=== PATIENT | male | born 1990 | race Two or more races ===

== ENCOUNTER 2020-07-06 13:10 | Outpatient (REF) | payer OTHER, SELFPAY | END 2020-07-06 13:11 | disposition home or self-care (01) | LOC: HO.LAB 13:10 | PROVIDERS: Visit Provider Internal Medicine | DX: Z20.828 Contact with and (suspected) exposure to other viral communicable diseases (principal) | CPT/HCPCS: C9803; U0003 ==

== ENCOUNTER 2020-09-24 03:28 | Emergency (ER) | payer OTHER, SELFPAY ==
--- NOTE | ~2020-09-24 | US_ITS ---
EXAMINATION: US ABDOMEN LIMITED CLINICAL INFORMATION: Right upper quadrant/epigastric pain. COMPARISON: CT from earlier today TECHNIQUE: Real-time imaging of the right upper quadrant abdominal viscera. FINDINGS: PANCREAS: The visualized proximal portion of the pancreas is unremarkable. The distal portion is obscured secondary to overlying bowel gas. LIVER: The liver is normal in size. The liver contour is normal. Parenchymal echogenicity is mildly increased, suggesting steatosis with focal sparing near the gallbladder. There is no intrahepatic biliary duct dilatation seen. GALLBLADDER: The gallbladder is physiologically distended, and multiple gallstones are identified. Gallbladder wall thickness is at the upper limits of normal. No pericholecystic fluid identified. COMMON BILE DUCT: Normal in caliber measuring 0.4 cm in diameter. RIGHT KIDNEY: No hydronephrosis. No renal calculi or focal parenchymal lesions. The kidney measures 10.6 cm in maximum dimension. FREE FLUID: None. US/US abdomen limited IMPRESSION: Cholelithiasis with gallbladder wall thickness at the upper limits of normal.
--- NOTE | ~2020-09-24 | CT_ITS ---
EXAMINATION: CT ABDOMEN AND PELVIS WITH CONTRAST CLINICAL INFORMATION: Epigastric, right flank pain COMPARISON: None TECHNIQUE: Multidetector volumetric images were obtained from the superior aspect of the liver through the pubic symphysis following administration of 75 mL of Omnipaque 350 intravenous contrast. Sagittal and coronal reformatted images were obtained on the technologist's workstation. Oral contrast: No This CT examination was performed using dose optimization techniques as appropriate, variously including the following: *Automated exposure control *Adjustment of mA and/or kV according to patient size (this includes techniques or standardized protocols for targeted exams where dose is matched to indication/reason for exam; i.e. extremities or head) *Use of iterative reconstruction technique DLP: 721 mGy-cm FINDINGS: LUNG BASES: The visualized lung bases are unremarkable. LIVER, GALLBLADDER, AND BILIARY TREE: The liver is normal in size, shape, and attenuation. No focal hepatic lesion or biliary ductal dilatation is present. The gallbladder is physiologically distended. Subtle gallbladder wall thickening cannot be excluded. No densely calcified gallstones are seen. PANCREAS: Unremarkable. SPLEEN: Unremarkable. ADRENAL GLANDS: Unremarkable. KIDNEYS AND URETERS: The kidneys are normal in size, shape, and attenuation. No hydronephrosis, hydroureter, or obstructing calculi seen. No perinephric stranding. BLADDER: Unremarkable. GASTROINTESTINAL TRACT: The small and large bowel are unremarkable. The appendix is unremarkable. No free fluid or free air is seen. ABDOMINAL WALL: Bilateral fat-containing inguinal hernias noted. LYMPH NODES: Normal. VASCULAR: Retroaortic left renal vein is noted. PELVIC VISCERA: Unremarkable. OSSEOUS STRUCTURES: Unremarkable. CT/CT abdomen pelvis w con IMPRESSION: Questionable mild gallbladder wall thickening, suboptimally assessed on CT; this would be better evaluated with ultrasound as clinically warranted. No additional acute findings identified in the abdomen/pelvis.
[2020-09-24 03:33] VITALS: BP 175/102; PULSE 53; RESP 20; TEMP 36.9; O2SAT 100; BMI 34.0
--- NOTE | 2020-09-24 03:43 | ED.BACK ---
HPI - Back Pain/Injury General Chief Complaint: Back Pain/Injury Stated Complaint: BACK PAIN Time Seen by Provider: 09/24/20 03:42 Source: patient Mode of arrival: ambulatory History of Present Illness HPI Narrative: This is a 30-year-old male without significant past medical history who presents with 1 month of mid back pain that is atraumatic in nature and when it is really strong patient states radiates into the epigastric area. He states that sometimes this can occur in the middle the night and he is unable to sleep, he denies associated fevers, chills, nausea, vomiting, diarrhea, or urinary symptoms. Patient denies alcohol or IVDA history Related Data Previous Rx's Medication Instructions Recorded ketorolac 10 mg PO Q6H PRN 5 Days #20 tab 09/24/20 Allergies Allergy/AdvReac Type Severity Reaction Status Date / Time No Known Allergies Allergy Verified 09/24/20 03:38 Review of Systems Review of Systems: Pertinent positives and negatives as stated in HPI and 10 point review of systems is otherwise negative. [facility] Past Medical History Source: nursing notes reviewed Social History Social History Advance Directives: No Advance Directives Information Provided: No Physical Exam Vital Signs: Vital Signs: Last Vital Signs Temp 97.7 F 09/24/20 06:00 Pulse 47 L 09/24/20 06:00 Resp 16 09/24/20 06:00 BP 120/76 09/24/20 06:00 Pulse Ox 98 09/24/20 06:00 Body Mass Index 34.0 VITAL SIGNS: Reviewed. GENERAL: Well developed, well nourished, moderate distress. NOSE: Nares patent bilateral OROPHARYNX: no oral lesions noted, posterior pharynx clear NECK: Supple, no adenopathy LUNGS: Normal breath sounds. No adventitious sounds or accessory muscle use. SpO2<100> CARDIOVASCULAR: Regular rate and rhythm without noted murmurs ABDOMEN: Soft, non-tender, non-distended with bowel sounds, no CVA tenderness BACK: No midline vertebral tenderness or paraspinal spasm. NEUROLOGIC: Alert and oriented x 4. Course Course Course Narrative: This is a 30-year-old male with history and clinical presentation suggestive pancreatitis, gastritis, less likely renal colic or cholecystitis. Review of all investigations without acute findings other than found to have hematuria which prompted follow-up CT scan with a suggestion of gallbladder wall thickening and subsequent ultrasound showed cholelithiasis with upper gallbladder wall thickening. I discussed the case with General surgery who recommends follow-up on Saturday for schedule of elective surgery. All results and findings were discussed with patient at bedside and he is agreeable for discharge and was discharged home in stable condition. MDM - Back Pain/Injury Lab Data Result diagrams: 09/24/20 04:00 09/24/20 04:00 Labs: Lab Results 09/24/20 09/24/20 09/24/20 Range/Units 04:00 04:00 04:00 WBC 10.5 (4.8-10.8) X10*3/uL RBC 5.61 (4.60-5.80) X10*6/uL Hgb 15.5 (14.0-18.0) g/dl Hct 49.0 (42-52) % MCV 87.3 (80-98) fL MCH 27.6 (27.0-33.0) pg MCHC 31.6 (31.0-36.0) g/dl RDW 13.1 (11.0-16.0) % Plt Count 287 (160-400) X10*3/uL MPV 9.2 L (9.4-12.4) fL Immature Gran % (Auto) 0.3 (0.0-0.4) % Neut % (Auto) 61.4 (45-73) % Lymph % (Auto) 32.0 (20-40) % Martin % (Auto) 5.8 (2-11) % Eos % (Auto) 0.2 (0-4) % Baso % (Auto) 0.3 (0-2) % Lymph # (Auto) 3.4 (1.2-4.9) X10*3/uL Martin # (Auto) 0.6 (0.1-1.2) X10*3/uL Eos # (Auto) 0.0 (0.0-0.4) X10*3/uL Baso # (Auto) 0.0 (0.0-0.2) X10*3/uL Abs Immat Gran (auto) 0.03 (0.00-0.03) X10*3/uL Absolute Neuts (auto) 6.4 (2.0-8.3) X10*3/uL Absolute Nucleated RBC 0.000 (0.0-0.012) X10*3/uL Nucleated RBC % (auto) 0.0 (0.0-0.2) /100WBC Sodium 139 (135-145) mmol/L Potassium 3.5 (3.3-5.1) mmol/L Chloride 101 (96-108) mmol/L Carbon Dioxide 27 (22-29) mmol/L Anion Gap 15 (12-20) BUN 12 (9-16) mg/dL Creatinine 1.10 (0.5-1.4) mg/dL Estim Creat Clear Calc 112.4 Estimated GFR > 60 Random Glucose 104 (60-115) mg/dL Calcium 9.1 (8.4-10.2) mg/dL Total Bilirubin 0.4 (0.0-1.0) mg/dL AST 22 (5-37) U/L ALT 36 (0-40) U/L Alkaline Phosphatase 73 (39-117) U/L Total Protein 7.4 (6.5-8.0) g/dL Albumin 4.5 (3.5-5.0) g/dL Lipase 38 (8-78) U/L Urine Color YELLOW Urine Appearance CLEAR Urine pH 6.0 (5.0-8.0) Ur Specific [place] >= 1.030 H (1.005-1.025) Urine Protein 2+ H (NEG-TRACE) MG/DL Urine Glucose (UA) NEG (NEG) MG/DL Urine Ketones NEG (NEG) MG/DL Urine Blood 3+ H (NEG) Urine Nitrite NEG (NEG) Ur Leukocyte Esterase NEG (NEG) Urine RBC 15-29 H (0) /HPF Urine WBC 0 (0-4) /HPF Ur Squamous Epith Cells TRACE /LPF Urine Bacteria NONE /LPF Hyaline Casts 0-2 /LPF Urine Mucus TRACE /LPF Urine Opiates Screen (Not Detect) Ur Barbiturates Screen (Not Detect) Ur Phencyclidine Scrn (Not Detect) Ur Amphetamines Screen (Not Detect) U Benzodiazepines Scrn (Not Detect) Urine Cocaine Screen (Not Detect) U Marijuana (THC) Screen (Not Detect) 09/24/20 Range/Units 04:00 WBC (4.8-10.8) X10*3/uL RBC (4.60-5.80) X10*6/uL Hgb (14.0-18.0) g/dl Hct (42-52) % MCV (80-98) fL MCH (27.0-33.0) pg MCHC (31.0-36.0) g/dl RDW (11.0-16.0) % Plt Count (160-400) X10*3/uL MPV (9.4-12.4) fL Immature Gran % (Auto) (0.0-0.4) % Neut % (Auto) (45-73) % Lymph % (Auto) (20-40) % Martin % (Auto) (2-11) % Eos % (Auto) (0-4) % Baso % (Auto) (0-2) % Lymph # (Auto) (1.2-4.9) X10*3/uL Martin # (Auto) (0.1-1.2) X10*3/uL Eos # (Auto) (0.0-0.4) X10*3/uL Baso # (Auto) (0.0-0.2) X10*3/uL Abs Immat Gran (auto) (0.00-0.03) X10*3/uL Absolute Neuts (auto) (2.0-8.3) X10*3/uL Absolute Nucleated RBC (0.0-0.012) X10*3/uL Nucleated RBC % (auto) (0.0-0.2) /100WBC Sodium (135-145) mmol/L Potassium (3.3-5.1) mmol/L Chloride (96-108) mmol/L Carbon Dioxide (22-29) mmol/L Anion Gap (12-20) BUN (9-16) mg/dL Creatinine (0.5-1.4) mg/dL Estim Creat Clear Calc Estimated GFR Random Glucose (60-115) mg/dL Calcium (8.4-10.2) mg/dL Total Bilirubin (0.0-1.0) mg/dL AST (5-37) U/L ALT (0-40) U/L Alkaline Phosphatase (39-117) U/L Total Protein (6.5-8.0) g/dL Albumin (3.5-5.0) g/dL Lipase (8-78) U/L Urine Color Urine Appearance Urine pH (5.0-8.0) Ur Specific [place] (1.005-1.025) Urine Protein (NEG-TRACE) MG/DL Urine Glucose (UA) (NEG) MG/DL Urine Ketones (NEG) MG/DL Urine Blood (NEG) Urine Nitrite (NEG) Ur Leukocyte Esterase (NEG) Urine RBC (0) /HPF Urine WBC (0-4) /HPF Ur Squamous Epith Cells /LPF Urine Bacteria /LPF Hyaline Casts /LPF Urine Mucus /LPF Urine Opiates Screen Not Detected (Not Detect) Ur Barbiturates Screen Not Detected (Not Detect) Ur Phencyclidine Scrn Not Detected (Not Detect) Ur Amphetamines Screen Not Detected (Not Detect) U Benzodiazepines Scrn Not Detected (Not Detect) Urine Cocaine Screen Not Detected (Not Detect) U Marijuana (THC) Screen Not Detected (Not Detect) Discharge Plan Discharge Clinical Impression: Cholelithiasis Qualifiers: Cholelithiasis location: gallbladder Cholecystitis presence: without cholecystitis Biliary obstruction: without biliary obstruction Qualified Code(s): K80.20 - Calculus of gallbladder without cholecystitis without obstruction Patient Disposition: Home, Self-Care Instructions: Gallstones (ED) Additional Instructions: 1. Tylenol 1000 mg, orally, every 6 hours as needed for pain control. Do not exceed 4000 mg within 24 hours. 2. Eat a very bland diet, minimal fat content. 3. You have been provided a surgical referral listed below and your case was discussed with Dr. King. Do not hesitate to return to the emergency department if you develop any acute worsening of your symptoms especially nausea, vomiting, fevers, chills. Prescriptions: New ketorolac 10 mg tablet 10 mg PO Q6H PRN (Reason: pain) 5 Days Qty: 20 RF: 0 Referrals: Ryland King MD [Physician] - 09/26/20 8:00 am (Evaluation and management of symptomatic cholelithiasis.)
--- NOTE | 2020-09-24 03:47 | PC.NURSE ---
Pt found sitting upright in bed, speaking full sentences. Pt reporting pain to right lower back for 1-3 months, states the pain is intermittent, comes and goes. Pt denies any injury, pt denies previous eval for complaint by MD. clinical laboratory technologist at bedside to obtain labs and send urine. Awaiting results. MD at bedside for primary eval.
[2020-09-24 04:06] LABS: MANUAL DIFF FLAG NO
[2020-09-24 04:08] LABS: Basophils Percent Auto 0.3 % (0-2); Eosinophils Percent Auto 0.2 % (0-4); Hemoglobin 15.5 g/dl (14.0-18.0); Imm Gran Abs Auto 0.03 X10*3/uL (0.00-0.03); Imm Gran Pct Auto 0.3 % (0.0-0.4); Lymphocytes Absolute Auto 3.4 X10*3/uL (1.2-4.9); Mean Corpuscular HGB Conc 31.6 g/dl (31.0-36.0); Mean Corpuscular Hemoglobin 27.6 pg (27.0-33.0); Mean Corpuscular Volume 87.3 fL (80-98); Mean Platelet Volume 9.2 fL (9.4-12.4); Monocytes Absolute Auto 0.6 X10*3/uL (0.1-1.2); Monocytes Percent Auto 5.8 % (2-11); Neutrophils Absolute Auto 6.4 X10*3/uL (2.0-8.3); Neutrophils Percent Auto 61.4 % (45-73); Platelet Count 287 X10*3/uL (160-400); Red Blood Count 5.61 X10*6/uL (4.60-5.80); Red Cell Distribution Width 13.1 % (11.0-16.0); White Blood Count 10.5 X10*3/uL (4.8-10.8)
[2020-09-24 04:11] LABS: Glucose Urine UA NEG (NEG); Leukocyte Esterase Urine NEG (NEG); Nitrite Urine NEG (NEG); Specific Gravity - Urine >= 1.030 (1.005-1.025); Urine Blood 3+ (NEG); Urine Ketones NEG (NEG); Urine Protein 2+ MG/DL (NEG-TRACE)
[2020-09-24] MEDS: Lidocaine 4 % Patch ADH..PATCH 1 PATCH TRANSDERMA (04:11)
[2020-09-24] MEDS: Acetaminophen 325 MG TABLET 975 MG PO (04:11)
[2020-09-24] MEDS: Ketorolac Tromethamine 15 MG/ML VIAL IM (04:11)
--- NOTE | 2020-09-24 04:15 | PC.NURSE ---
Medicated per MAR.
[2020-09-24 04:20] LABS: Amphetamine Screen Urine Not Detected (Not Detect); Barbiturates, Urine Not Detected (Not Detect); Benzodiazepines Screen Urine Not Detected (Not Detect); Cannabinoid Screen Urine Not Detected (Not Detect); Cocaine Screen Urine Not Detected (Not Detect); Opiate Screen Urine Not Detected (Not Detect); Phencyclidine Screen Urine Not Detected (Not Detect)
--- NOTE | 2020-09-24 04:28 | PC.NURSE ---
at bedside for eval.
[2020-09-24 04:29] LABS: Alanine Aminotransferase 36 U/L (0-40); Albumin Level 4.5 g/dL (3.5-5.0); Alkaline Phosphatase 73 U/L (39-117); Anion Gap 15 (12-20); Appearance Urine CLEAR; Aspartate Amino Transferase 22 U/L (5-37); Bilirubin Total 0.4 mg/dL (0.0-1.0); Blood Urea Nitrogen 12 mg/dL (9-16); Calcium 9.1 mg/dL (8.4-10.2); Carbon Dioxide 27 mmol/L (22-29); Chloride 101 mmol/L (96-108); Color Urine YELLOW; Creatinine Clr Calc Pharmacy 112.4; Estimated Glomerular Filt Rate > 60; Glucose Random 104 mg/dL (60-115); Lipase 38 U/L (8-78); Potassium 3.5 mmol/L (3.3-5.1); Sodium 139 mmol/L (135-145); Total Protein 7.4 g/dL (6.5-8.0)
--- NOTE | 2020-09-24 04:35 | PC.NURSE ---
IV established, awaiting CT. Pt reports some relief of pain, states pain decreased to a 4/10. Continue to monitor.
--- NOTE | 2020-09-24 04:43 | PC.NURSE ---
Pt ambulating to CT with a steady gait.
[2020-09-24 04:44] LABS: Hyaline Casts Urine 0-2 /LPF; Mucus Urine TRACE /LPF; Squamous Epithelial Cell Urine TRACE /LPF; WBC Urine 0 /HPF (0-4)
[2020-09-24] MEDS: iohexoL 350 MG/ML 75 ML INFUS..BTL IV (05:02)
[2020-09-24 05:15] VITALS: BP 127/79; PULSE 51; RESP 16
--- NOTE | 2020-09-24 05:40 | PC.NURSE ---
Off to U/S in wheelchair.
[2020-09-24 06:00] VITALS: BP 120/76; PULSE 47; RESP 16; TEMP 36.5; O2SAT 98
--- NOTE | 2020-09-24 06:06 | PC.NURSE ---
Pt returns from U/S, awaiting results.
--- NOTE | 2020-09-24 06:35 | PC.NURSE ---
HR noted to be 45-50 bpm while sleeping. Pt states that his HR runs low, pt explains he is a very active person. aware.
--- NOTE | 2020-09-24 06:37 | PC.NURSE ---
MD at bedside discussing results and plan to DC home.
== END 2020-09-24 08:36 | disposition home or self-care (01) ==
PROVIDERS: Emergency Provider Student in an Organized Health Care Education/Training Program
DX: K80.20 Calculus of gallbladder without cholecystitis without obstruction (principal); M54.5 Low back pain; Z79.899 Other long term (current) drug therapy
CPT/HCPCS: 36415; 74177; 76705; 80053; 80307; 81001; 83690; 85025; 96372; 99284; J1885; Q9967

== ENCOUNTER → 2020-10-06 15:42 | Outpatient (BNVA) | payer OTHER, SELFPAY | PROVIDERS: Visit Provider Surgery ==

== ENCOUNTER 2020-10-25 07:23 | Day surgery (SDC) | payer OTHER, SELFPAY ==
[2020-10-18 19:29] VITALS: BMI 34.2
--- NOTE | 2020-10-21 14:20 | HO.ANESPROP2 ---
Documented by User: Anastasia Rosas 10/21/20 14:21 HPI - Anesthesia Eval Consult details Narrative: 30yo M for Cholecystectomy Laparoscopic PMFSH Active Problems Active Problems: All Active Problems (Updated 10/19/20 @ 10:09 by Chhaya Malik) Gallstones (Acute) No active medical problems (Acute) Past Medical History Medical History Gallstones History of COVID-19 Lab test negative for COVID-19 virus Social History Social History Smoking Status: Never smoker Use of substances other than those prescribed or required for medical reasons: Yes Substance Use Frequency: Monthly Advance Directives: No Advance Directives Information Provided: No Advance Directives on File: No Meds Allergies Allergy/AdvReac Type Severity Reaction Status Date / Time No Known Allergies Allergy Verified 10/25/20 07:53 Exam Exam Date and Time: October 21, 2020 1420 Height,Weight and Vital Signs: Height 5 ft 8 in Weight 102.058 kg Pertinent Lab Results Pertinent Lab Results: Laboratory Tests 09/24/20 09/24/20 04:00 04:00 WBC 10.5 Hgb 15.5 Hct 49.0 Plt Count 287 Sodium 139 Potassium 3.5 Chloride 101 Carbon Dioxide 27 BUN 12 Creatinine 1.10 Assessment and Plan Assessment Anesthesia Assessment: Chart Reviewed Documented by User: Amy Pittman 10/25/20 09:35 PMFSH Past Medical History Medical History Gallstones History of COVID-19 Lab test negative for COVID-19 virus Social History Social History Smoking Status: Never smoker Use of substances other than those prescribed or required for medical reasons: Yes Substance Use Frequency: Monthly Advance Directives: No Advance Directives Information Provided: No Advance Directives on File: No Meds Allergies Allergy/AdvReac Type Severity Reaction Status Date / Time No Known Allergies Allergy Verified 10/25/20 07:53 Exam Airway Mallampati Class: II TM Dist: >3cm Neck ROM: Full Assessment and Plan Assessment Anesthesia Assessment: Anesthesia Plan Discussed Final Anesthetic Review NPO: Yes ASA Class: I Final Preanesthetic Review: No Changes in Pt Med Stat, Meds/Allgs Chart Reviewed, Consent Obtained/Reviewed and Anes Risks/Benef Reviewed Patient Risk: Low Procedure Risk: Low Assessment/Block/Sedation in SS: Assess/Block/Sedation-SS Anesthetic Plan Anesthetic Plan: GA Disposition: Standard PACU
[2020-10-25] VITALS (8 sets, daily range): BP systolic 114–141; BP diastolic 65–85; PULSE 46–80; RESP 16–18; TEMP 36.2–36.3; O2SAT 96–100
[2020-10-25] MEDS: Acetaminophen 325 MG TABLET 650 MG PO ×2 (08:24→12:09)
[2020-10-25] MEDS: Lactated Ringers 1,000 ML 100 ML IVCONT (08:24)
--- NOTE | 2020-10-25 09:31 | MHC.SHP ---
Pre-Procedural Eval Section B Chief Complaint: Gallstones Allergies: Allergies Allergy/AdvReac Type Severity Reaction Status Date / Time No Known Allergies Allergy Verified 10/25/20 07:53 Plan I have reviewed the history and physical and performed a pertinent physical examination on my patient. No changes have occurred unless specified.
--- NOTE | 2020-10-25 11:03 | P.OP_ITS ---
Operative Note Operative Note Date of Service: 10/25/20 Narrative: Preop diagnosis: Symptomatic gallstones Postop diagnosis: Symptomatic gallstones Procedure: Laparoscopic cholecystectomy with repair of a supraumbilical hernia Surgeon: Ryland King MD The patient is a 30-year-old male with periodic right upper quadrant pain with note of gallstones on imaging studies. In view of his symptoms likely due to gallstones, he wanted to proceed with laparoscopic cholecystectomy. He understood the technique of laparoscopic cholecystectomy with possible conversion to open. He was aware of the risks, benefits, and alternatives. He was brought to the operating room and placed supine on the table under general anesthesia via endotracheal tube. The abdomen was prepped and draped in the usual sterile fashion. A surgical time-out was done. The patient received Cefotan 2 g IV preoperatively. I made a short incision on the supraumbilical margin using a blade 15 and this was the carried down through the full-thickness of the skin and subcutaneous fat using blunt dissection with Tara clamps. We then encountered a fat- containing supraumbilical hernia. This was actually seen on his CAT scan as well. We dissected the hernia sharply down to the fascial edges until we were able to completely define the defect. I then proceeded to reduce the hernia. The fascial opening was lengthened a little bit to allow placement of the Annmarie port. I applied stay sutures on both sides of the fascia. I insufflated through the port to a pressure of 15 mm hg. From here on the rest of the procedure was done under vision with the laparoscope. With laparoscopic visualization I proceeded to insert a 5/12 mm port through a small incision in the epigastric area below the subcostal margin. 5 mm ports were introduced through small incisions below the subcostal margin along the anterior axillary line and the midclavicular line. Graspers were placed through these working ports. The patient was placed in head-up and [id number] position. The gallbladder was seen and there was note of adhesions on the anterior wall. I was able to however grasp the fundus using a grasper and this was used to retract the gallbladder cephalad. I proceeded to then gently dissect the adh esions of the anterior wall using [place] dissector until we were able to completely expose the entire anterior wall of the gallbladder. I was able to apply another grasper towards the pouch of the gallbladder and this was used to retract the gallbladder laterally. At this point therefore we were retracting the gallbladder in a lateral and cephalad fashion with a graspers. This put the area of the cystic duct on stretch. I gently dissected the area of cystic duct using the [place] dissector and until was able to clearly define the cystic duct. I continued to dissect around the cystic duct to expose this circumferentially. By doing so we were able to confirm the confluence of the cystic duct with the neck of the gallbladder as well as achieve a critical view of the hepatocystic triangle. There was what appeared to be a fine cystic artery traveling parallel along the cystic duct. I applied clips on the cystic duct with 2 clips applied distally. The cystic duct was transected between clips using Endo scissors. I applied clips on the cystic artery and this was transected between clips as well. With traction on the gallbladder away wall away from the liver bed a continue to dissect across the hilum until I was able to reach the interface of the gallbladder wall and the liver bed. I incised the peritoneum of the gallbladder with electrocautery spatula. I then proceeded to separate the gallbladder wall and the liver bed along this plane of dissection using a combination of blunt dissection with the tip of the spatula as well as electrocautery itself. We continued to separate the gallbladder away from the liver bed all the way to the fundus until the entire gallbladder was completely . This was retrieved through an endobag through the umbilical incision. We reinserted all ports and re-insufflated I did copious irrigation in view of some tiny amount of spillage of bile from a tear on the gallbladder from 1 of the graspers. I observed for hemostasis. There was no evidence of any bleeding in the subhepatic space. I examined all 4 quadrants. There was no other pathology. There was evidence of any bowel injury. I then re-examined the subhepatic space. This appeared hemostatic. I then desufflated through the port sites and removed all ports under vision with the laparoscope. The supraumbilical hernia was closed with a [id number] Maxon 1 stitch. All incisions were infiltrated with Marcaine 0.5% for postop analgesia and the procedure was completed. The patient appears well pinna complication noted. Initial and final counts of sponges and instruments were correct. Estimated blood loss about 30 cc The patient was extubated without difficulty and transferred to the recovery room with stable vital signs.
--- NOTE | 2020-10-25 11:09 | PM.OP ---
Brief Operative Note Date of Service: 10/25/20 Pre-op diagnosis: Gallstones Post-op diagnosis: same Procedure: Laparoscopic cholecystectomy Surgeon: Ryland King MD Anesthesia: GETA Estimated blood loss (mL): 30 Pathology: other (Gallbladder) Condition: stable Disposition: PACU
[2020-10-25] MEDS: oxyCODONE HCl Immed Release 5 MG TABLET PO (12:09)
== END 2020-10-25 13:00 | disposition home or self-care (01) ==
PROVIDERS: Visit Provider Surgery
PROC: 0FT44ZZ Resection of Gallbladder, Percutaneous Endoscopic Approach (ICD-10-PCS; CPT 47562; principal; 2020-10-25 09:20)
DX: K80.10 Calculus of gallbladder with chronic cholecystitis without obstruction (principal); D36.0 Benign neoplasm of lymph nodes; K43.9 Ventral hernia without obstruction or gangrene; K66.0 Peritoneal adhesions (postprocedural) (postinfection); Z86.16 Personal history of COVID-19; Z79.899 Other long term (current) drug therapy
CPT/HCPCS: 47562; 49560; 88304; J1100; J1885; J2250; J2405; J3010

== ENCOUNTER → 2020-11-07 14:00 | Outpatient (BNVA) | payer OTHER, SELFPAY | PROVIDERS: Visit Provider Surgery ==

== ENCOUNTER 2021-06-13 11:59 | Outpatient (REF) | payer OTHER, SELFPAY ==
[2021-06-13 12:26] LABS: COVID-19 Test Negative (Negative)
== END 2021-06-13 12:00 | disposition home or self-care (01) ==
LOC: HO.LAB 11:59
PROVIDERS: PCP Internal Medicine; Visit Provider Internal Medicine
DX: Z20.822 Contact with and (suspected) exposure to COVID-19 (principal)
CPT/HCPCS: 36415; 87635; C9803

== ENCOUNTER 2021-06-27 15:40 | Outpatient (REF) | payer OTHER, SELFPAY ==
[2021-06-27 16:02] LABS: COVID-19 Test Negative (Negative); IDNOW Serial# 16C4AD1C
== END 2021-06-27 15:41 | disposition home or self-care (01) ==
LOC: HO.LAB 15:40
PROVIDERS: Visit Provider Internal Medicine
DX: Z20.822 Contact with and (suspected) exposure to COVID-19 (principal)
CPT/HCPCS: 36415; 87635; C9803

== ENCOUNTER 2022-09-26 12:30 | Outpatient (REF) | payer OTHER, SELFPAY ==
[2022-09-26 13:00] LABS: MANUAL DIFF FLAG NO
[2022-09-26 13:27] LABS: Basophils Percent Auto 0.5 % (0-2); Eosinophils Absolute Auto 0.1 X10*3/uL (0.0-0.4); Eosinophils Percent Auto 0.8 % (0-4); Hematocrit 48.7 % (42.0-52.0); Hemoglobin 15.6 g/dl (14.0-18.0); Imm Gran Abs Auto 0.02 X10*3/uL (0.00-0.03); Imm Gran Pct Auto 0.3 % (0.0-0.4); Lymphocytes Absolute Auto 1.9 X10*3/uL (1.2-4.9); Lymphocytes Percent Auto 29.2 % (20-40); Mean Corpuscular Hemoglobin 27.3 pg (27.0-33.0); Mean Corpuscular Volume 85.3 fL (80.0-98.0); Mean Platelet Volume 9.2 fL (9.4-12.4); Monocytes Absolute Auto 0.4 X10*3/uL (0.1-1.2); Monocytes Percent Auto 6.8 % (2-11); Neutrophils Absolute Auto 4.1 x10*3/uL (2.0-8.3); Neutrophils Percent Auto 62.4 % (45-73); Platelet Count 301 X10*3/uL (160-400); Red Blood Count 5.71 X10*6/uL (4.60-5.80); Red Cell Distribution Width 12.8 % (11.0-16.0); White Blood Count 6.5 X10*3/uL (4.8-10.8)
[2022-09-26 14:08] LABS: Alanine Aminotransferase 63 U/L (0-40); Albumin Level 4.4 g/dL (3.5-5.0); Alkaline Phosphatase 67 U/L (39-117); Anion Gap 11 (12-20); Aspartate Amino Transferase 34 U/L (5-37); Bilirubin Total 0.6 mg/dL (0.0-1.0); Blood Urea Nitrogen 13 mg/dL (9-16); Calcium 9.2 mg/dL (8.4-10.2); Carbon Dioxide 28 mmol/L (22-29); Chloride 105 mmol/L (96-108); Cholesterol 217 mg/dL; Estimated Glomerular Filt Rate > 60; Glucose Fasting 92 mg/dL (60-99); HDL Cholesterol 37 mg/dL; LDL Cholesterol Calculated 154 mg/dl; Potassium 4.4 mmol/L (3.3-5.1); Sodium 140 mmol/L (135-145); Total Protein 7.4 g/dL (6.5-8.0); Triglycerides 130 mg/dL
[2022-09-26 14:29] LABS: Free T4 (Free Thyroxine) 0.94 ng/dL (0.71-1.85); Thyroid Stimulating Hormone 1.52 uIU/mL (0.32-4.0); Vitamin B12 323 pg/mL (200-900)
== END 2022-09-26 12:31 | disposition home or self-care (01) ==
LOC: HO.LAB 12:30
PROVIDERS: PCP Internal Medicine; Visit Provider Internal Medicine
DX: Z00.00 Encounter for general adult medical examination without abnormal findings (principal); R63.5 Abnormal weight gain; R53.83 Other fatigue
CPT/HCPCS: 36415; 80053; 80061; 82607; 84439; 84443; 85025

== ENCOUNTER 2023-03-20 09:03 | Outpatient (AMB) | payer BC, SELFPAY ==
--- NOTE | 2023-03-20 09:02 | A.OFFVIS_ITS ---
Intake Vital Signs 03/20/23 09:04 Height 5 ft 8 in Weight 300 lb BMI 45.6 BP 136/78 Blood Pressure Location Lt brachial Position Sitting Pulse 68 Pulse Source Pulse Oximeter Pulse Oximetry (%) 97 Oxygen Delivery Method Room Air Intake Visit Reasons: Sleep apnea Outpatient Interviewing Clerk Required: No Accompanied by: Self / Same As Patient Allergies No Known Allergies Allergy (Verified 03/20/23 09:10) Medication List - Last Reconciled 03/20/23 by Leonora Ta LPN lisinopril 10 mg PO DAILY HPI Sleep apnea HPI Details Ramu is a very pleasant 33 year old male, never tobacco smoker, with underlying asthma and morbid obesity. He was referred by PCP for evaluation for obstructive sleep apnea. He reports loud snoring, daytime fatigue, witnessed apneas and paroxysmal nocturnal dyspnea which has been more noticeable since a significant weight gain over the past year. He has been more dyspneic with exertion which he attributes to his weight gain. He does not use an inhaler. He reports childhood asthma and seasonal allergies. He denies any family history of lung conditions. [facility] Medical History Gallstones History of COVID-19 Lab test negative for COVID-19 virus Social History (Updated 03/20/23 @ 09:11 by Leonora Ta LPN) Patient Tobacco Use Status: Never used Tobacco Review of Systems Const Denies chills, Denies excessive sweating, Denies fever(s), Denies headache(s) and Denies night sweats Eyes Denies dry eyes, Denies irritation and Denies itchy eyes ENT Reports Normal hearing present, Denies headache(s), Denies nasal congestion, Denies nasal discharge, Denies post nasal drip and Denies sore throat Card Denies chest pain, Denies chest pain at rest, Denies chest pain with activity, Denies claudication, Denies leg edema, Reports dyspnea, Reports dyspnea on e xertion, Denies orthopnea and Reports paroxysmal nocturnal dyspnea Resp Denies chest congestion, Denies excessive phlegm production, Denies pain on inspiration, Denies pain with cough, Reports dyspnea, Reports dyspnea on exertion, Denies stridor and Denies wheezing Musc Denies myalgias Neuro Reports Normal hearing present and Denies headache(s) Endo Denies excessive sweating Tito/Lymph Denies lymphadenopathy Aller/Immun Denies itchy eyes, Denies seasonal rhinorrhea and Denies wheezing Physical Exam Vital Signs: Last Vital Signs Pulse 68 03/20/23 09:04 BP 136/78 03/20/23 09:04 Pulse Ox 97 03/20/23 09:04 Oxygen Delivery Method Room Air 03/20/23 09:04 BMI result Body Mass Index 45.6 Const General: cooperative, healthy appearing, comfortable, no acute distress, well developed and alert Nutritional Appearance: obese Orientation/consciousness: patient oriented x3 Limitations: no limitations HEENT Head: Yes normal to inspection, Yes normocephalic and Yes atraumatic Ears: hearing grossly normal bilaterally and external ears normal Eyes General: appearance normal, both eyes and all related structures Eyelids: Yes eyelids normal Sclerae: sclerae normal EOM: EOMs intact bilaterally Neck Neck: Yes normal visual inspection and Yes no lymphadenopathy Lymphatic: no lymphadenopathy noted Chest Chest palpation & inspection: normal inspection of the chest Resp Effort & Inspection: normal respiratory effort, able to speak in complete sentences, no audible wheezes, no cough, no stridor, not tachypneic, no tripod positioning and no use of accessory muscles Auscultation: clear to auscultation bilaterally Cardio Jugular venous distension: no JVD Rate: regular rate Rhythm: regular rhythm Skin Other: warm, dry General skin exam: no rashes or lesions noted Neuro General: patient oriented x3 Cranial nerves: Yes Normal hearing present Cognition (Neuro): normal cognition Gait exam (Neuro): Normal gait present Extrem General: Yes normal to inspection, Yes capillary refill normal, Yes no clubbing, cyanosis or edema and Yes no pedal edema Psych Appearance: grossly normal and well kempt Speech and movement: Normal speech and movement present and Clear speech present Affect: normal affect Attitude: cooperative Thought process: Normal thought process present Thought content: Normal thought content present Insight: Good insight present (Psych) Judgement: Good judgement present (Psych) Assessment & Plan Assessment & Plan (1) Asthma: Code(s): J45.909 - Unspecified asthma, uncomplicated (2) Daytime somnolence: Code(s): R40.0 - Somnolence (3) Morbid obesity with BMI of 45.0-49.9, adult: Code(s): E66.01 - Morbid (severe) obesity due to excess calories; Z68.42 - Body mass index [BMI] 45.0-49.9, adult Plan Will send Ramu for home sleep study to evaluate for obstructive sleep apnea given his daytime somnolence, PND, loud snoring and witnessed apneas. Briefly discussed CPAP therapy. Will also send for PFT given his dyspnea on exertion and history of childhood asthma. Discussed his weight gain as a contributor to his symptoms, which he was interested in a referral to weight management. I will en ter this. Will follow up to review results. All questions were answered and patient is in agreement of plan. Orders: Orders PFT pulmonary function test Today J45.909 - Unspecified asthma, uncomplicated RT home sleep study Today E66.01 - Morbid (severe) obesity due to excess calories, R40.0 - Somnolence, Z68.42 - Body mass index [BMI] 45.0-49.9, adult Referrals Medical Weight Management Referral E66.01 - Morbid (severe) obesity due to excess calories, Z68.42 - Body mass index [BMI] 45.0-49.9, adult Coding Level of Care Code New Pt Level 4 (44736) Diagnoses Asthma J45.909 Daytime somnolence R40.0 Morbid obesity with BMI of 45.0-49.9, adult E66.01; Z68.42
[2023-03-20 09:04] VITALS: BP 136/78; PULSE 68; O2SAT 97; BMI 45.6
== END 2023-03-20 09:36 | disposition home or self-care (01) ==
LOC: HO.HPSW 09:03
PROVIDERS: PCP Internal Medicine; Referring Provider Internal Medicine; Visit Provider Nurse Practitioner Family
DX: J45.909 Unspecified asthma, uncomplicated (principal); R40.0 Somnolence; E66.01 Morbid (severe) obesity due to excess calories; Z68.42 Body mass index [BMI] 45.0-49.9, adult
CPT/HCPCS: 99204

== ENCOUNTER → 2023-05-20 15:59 | Outpatient (REF) | payer BC, SELFPAY | LOC: HO.SL 15:59 | PROVIDERS: PCP Internal Medicine; Visit Provider Nurse Practitioner Family | DX: G47.33 Obstructive sleep apnea (adult) (pediatric) (principal); R40.0 Somnolence; E66.01 Morbid (severe) obesity due to excess calories; Z68.42 Body mass index [BMI] 45.0-49.9, adult | CPT/HCPCS: 95806 ==

== ENCOUNTER → 2023-05-20 16:11 | Outpatient (BNV) | payer BC, SELFPAY | PROVIDERS: PCP Internal Medicine; Visit Provider Internal Medicine | DX: G47.33 Obstructive sleep apnea (adult) (pediatric) (principal) | CPT/HCPCS: 95806 ==

== ENCOUNTER 2023-06-04 15:38 | Outpatient (AMB) | payer BC, SELFPAY ==
--- NOTE | 2023-06-04 15:45 | A.OFFVIS_ITS ---
Intake Vital Signs 3 06/04/23 15:46 Height 5 ft 8 in Weight 282 lb BMI 42.9 BP 138/74 Blood Pressure Location Rt brachial Position Sitting Pulse 81 Pulse Source Pulse Oximeter Pulse Oximetry (%) 96 Oxygen Delivery Method Room Air Intake Visit Reasons: Obstructive sleep apnea Spinning Bath Person: Spinning Bath Person offered & declined Accompanied by: Self / Same As Patient Allergies No Known Allergies Allergy (Verified 06/04/23 15:49) Medication List - Last Reconciled 06/04/23 by Leonora Ta LPN losartan 50 mg PO DAILY HPI Obstructive sleep apnea 2 HPI0 Details Ramu is a very pleasant 33 year old male, never tobacco smoker, with underlying asthma, obstructive sleep apnea and morbid obesity. He reported symptoms of YEYO with loud snoring, daytime fatigue, witnessed apneas and paroxysmal nocturnal dyspnea which has been more noticeable since a significant weight gain over the past year. He also reported dyspnea with exertion. At the last visit he was sent for a PFT but unfortunately he missed the appointment. Today he presents to review sleep study results. [facility] Medical History Gallstones History of COVID-19 Lab test negative for COVID-19 virus Social History (Updated 06/04/23 @ 15:50 by Leonora Ta LPN) Patient Tobacco Use Status: Never used Tobacco Review of Systems Const Denies chills, Denies excessive sweating, Denies fever(s), Denies headache(s) and Denies night sweats Eyes Denies dry eyes, Denies irritation and Denies itchy eyes ENT Reports Normal hearing present and Denies headache(s) Card Denies chest pain, Denies chest pain at rest, Denies chest pain with activity, Denies claudication, Denies leg edema, Reports dyspnea, Reports dyspnea on exertion, Denies orthopnea and Reports paroxysmal nocturnal dyspnea Resp Denies chest congestion, Denies excessive phlegm production, Denies pain on inspiration, Denies pain with cough, Reports dyspnea, Reports dyspnea on exertion, Denies stridor and Denies wheezing Musc Denies myalgias Neuro Reports Normal hearing present and Denies headache(s) Endo Denies excessive sweating Tito/Lymph Denies lymphadenopathy Aller/Immun Denies itchy eyes, Denies seasonal rhinorrhea and Denies wheezing Physical Exam Vital Signs: Last Vital Signs Pulse 81 06/04/23 15:46 BP 138/74 06/04/23 15:46 Pulse Ox 96 06/04/23 15:46 Oxygen Delivery Method Room Air 06/04/23 15:46 BMI result Body Mass Index 42.9 Const General: cooperative, healthy appearing, comfortable, no acute distress, well developed and alert Nutritional Appearance: obese Orientation/consciousness: patient oriented x3 Limitations: no limitations HEENT Head: Yes normal to inspection, Yes normocephalic and Yes atraumatic Ears: hearing grossly normal bilaterally and external ears normal Eyes General: appearance normal, both eyes and all related structures Eyelids: Yes eyelids normal Sclerae: sclerae normal EOM: EOMs intact bilaterally Neck Neck: Yes normal visual inspection and Yes no lymphadenopathy Lymphatic: no lymphadenopathy noted Chest Chest palpation & inspection: normal inspection of the chest Resp Effort & Inspection: normal respiratory effort, able to speak in complete sentences, no audible wheezes, no cough, no stridor, not tachypneic, no tripod positioning and no use of accessory muscles Auscultation: clear to auscultation bilaterally Cardio Jugular venous distension: no JVD Rate: regular rate Rhythm: regular rhythm Skin Other: warm, dry General skin exam: no rashes or lesions noted Neuro General: patient oriented x3 Cranial nerves: Yes Normal hearing present Cognition (Neuro): normal cognition Gait exam (Neuro): Normal gait present Extrem General: Yes normal to inspection, Yes capillary refill normal, Yes no clubbing, cyanosis or edema and Yes no pedal edema Psych Appearance: grossly normal and well kempt Speech and movement: Normal speech and movement present and Clear speech present Affect: normal affect Attitude: cooperative Thought process: Normal thought process present Thought content: Normal thought content present Insight: Good insight present (Psych) Judgement: Good judgement present (Psych) Results Reviewed Results Reviewed: Assessment & Plan Assessment & Plan (1) Obstructive sleep apnea: Code(s): G47.33 - Obstructive sleep apnea (adult) (pediatric) (2) Asthma: Code(s): J45.909 - Unspecified asthma, uncomplicated (3) Morbid obesity with BMI of 45.0-49.9, adult: Code(s): E66.01 - Morbid (severe) obesity due to excess calories; Z68.42 - Body mass index [BMI] 45.0-49.9, adult Plan Reviewed sleep study results with patient which revealed an AHI of 13.4. Since patient is quite symptomatic, will start CPAP therapy. Will send in prescription for APAP mode and pressure settings of 6-16 cm with close monitoring for compliance and benefits. Sleep hygiene education reviewed. He is aware if there are any issues with the mask or CPAP machine, he will call the office. Will also trial Flovent. Inhaler technique reviewed and discussed importance of oral hygiene. All questions were answered and patient is in agreement of plan. Will follow up in 8 weeks. Medications: New 2 Flovent Diskus 100 mcg/actuation (fluticasone propionate) 2 inhalations inhalation BID 60 ea 3RF NS Coding Level of Care Code Est Pt Level 4 (32182) Diagnoses Obstructive sleep apnea G47.33 Asthma J45.909 Morbid obesity with BMI of 45.0-49.9, adult E66.01; Z68.42
[2023-06-04 15:46] VITALS: BP 138/74; PULSE 81; O2SAT 96; BMI 42.9
== END 2023-06-04 16:10 | disposition home or self-care (01) ==
PROVIDERS: PCP Internal Medicine; Visit Provider Nurse Practitioner Family
DX: G47.33 Obstructive sleep apnea (adult) (pediatric) (principal); J45.909 Unspecified asthma, uncomplicated; E66.01 Morbid (severe) obesity due to excess calories; Z68.42 Body mass index [BMI] 45.0-49.9, adult
CPT/HCPCS: 99214

== ENCOUNTER → 2023-06-04 15:38 | Outpatient (BNVA) | payer BC, SELFPAY | PROVIDERS: PCP Internal Medicine; Visit Provider Nurse Practitioner Family ==

== ENCOUNTER 2023-06-15 10:21 | Outpatient (REF) | payer BC, SELFPAY ==
[2023-06-15 10:59] LABS: Estimated Average Glucose 280 mg/dL; Hemoglobin A1c % 11.4 % (<6.0)
[2023-06-15 11:18] LABS: Anion Gap 14 (12-20); Blood Urea Nitrogen 8 mg/dL (9-16); Calcium 9.4 mg/dL (8.4-10.2); Carbon Dioxide 24 mmol/L (22-29); Chloride 102 mmol/L (96-108); Estimated Glomerular Filt Rate > 60; Glucose Random 210 mg/dL (60-115); Sodium 136 mmol/L (135-145)
== END 2023-06-15 10:22 | disposition home or self-care (01) ==
LOC: HO.LAB 10:21
PROVIDERS: PCP Internal Medicine; Visit Provider Internal Medicine
DX: E11.9 Type 2 diabetes mellitus without complications (principal); I10 Essential (primary) hypertension
CPT/HCPCS: 36415; 80048; 83036

== ENCOUNTER 2023-11-26 13:41 | Outpatient (AMB) | payer BC, SELFPAY ==
--- NOTE | 2023-11-26 13:14 | MHC.OFFVIS ---
Intake Visit Reasons: Obstructive sleep apnea Allergies No Known Allergies Allergy (Verified 06/04/23 15:49) HPI HPI Obstructive sleep apnea: Details: Ramu is a very pleasant 33 year old male, never tobacco smoker, with underlying asthma, obstructive sleep apnea and morbid obesity. Today's visit was conducted via telephone. He previously reported symptoms of YEYO with loud snoring, daytime fatigue, witnessed apneas and paroxysmal nocturnal dyspnea. He was started on CPAP therapy and could not tolerate. He felt the pressure was too much , waking up often to take the mask off and did not like the way the full face mask felt. At this time, he is not interested in continuing despite offering a trial of different mask or initiating RAMP. He was also prescribed Advair but has noticed less respiratory symptoms since an intentional 35+ weight loss. He has also noticed resolution of PND and improvements in daytime fatigue with weight loss. [facility] Medical History Gallstones History of COVID-19 Lab test negative for COVID-19 virus Social History (Updated 06/04/23 @ 15:50 by Leonora Ta LPN) Patient Tobacco Use Status: Never used Tobacco Review of Systems Const All systems reviewed & are unremarkable except as noted in HPI and below Physical Exam Const General: cooperative and no acute distress Orientation/consciousness: patient oriented x3 Resp Effort & Inspection: normal respiratory effort, able to speak in complete sentences and no audible wheezes Neuro General: patient oriented x3 Psych Mental Status: mental status grossly normal Speech and movement: Clear speech present Attitude: cooperative Thought process: Normal thought process present Thought content: Normal thought content present Insight: Good insight present (Psych) Judgement: Good judgement present (Psych) Assessment & Plan Assessment & Plan (1) Obstructive sleep apnea: Code(s): G47.33 - Obstructive sleep apnea (adult) (pediatric) Category: Medical (2) Asthma: Code(s): J45.909 - Unspecified asthma, uncomplicated Category: Medical Plan Discussed CPAP therapy with patient and he is not interested in continuing therapy. He feels his symptoms related to YEYO and asthma have been well controlled since recent intentional weight loss. We discussed trialing different masks or pressure settings but he would like to hold off at this time. Discussed sleep hygiene techniques. All questions were answered and patient is in agreement of plan. Will follow up PRN. Coding Level of Care Code Tele Est Pt Level 3 (68131) Diagnoses Obstructive sleep apnea G47.33 Asthma J45.909 Time Spent (min) 10
== END 2023-11-26 13:41 | disposition home or self-care (01) ==
LOC: HO.HPS 13:41
PROVIDERS: PCP Internal Medicine; Visit Provider Nurse Practitioner Family
DX: G47.33 Obstructive sleep apnea (adult) (pediatric) (principal); J45.909 Unspecified asthma, uncomplicated
CPT/HCPCS: 99441

== ENCOUNTER → 2023-11-26 13:41 | Outpatient (BNVA) | payer BC, SELFPAY | PROVIDERS: PCP Internal Medicine; Visit Provider Nurse Practitioner Family | DX: G47.33 Obstructive sleep apnea (adult) (pediatric) (principal); J45.909 Unspecified asthma, uncomplicated ==

== ENCOUNTER 2024-05-24 05:49 | Emergency (ER) | payer OTHER, SELFPAY ==
[2024-05-24 05:55] VITALS: BP 132/104; PULSE 112; RESP 18; TEMP 36.9; O2SAT 97; BMI 38.0
[2024-05-24 06:22] VITALS: BP 152/95; PULSE 88; RESP 22; TEMP 36.7; O2SAT 100
[2024-05-24 06:27] LABS: MANUAL DIFF FLAG NO
[2024-05-24 06:28] LABS: Basophils Absolute Auto 0.1 X10*3/uL (0.0-0.2); Basophils Percent Auto 0.5 % (0-2); Eosinophils Absolute Auto 0.1 X10*3/uL (0.0-0.4); Eosinophils Percent Auto 0.5 % (0-4); Hematocrit 45.7 % (42.0-52.0); Hemoglobin 15.4 g/dl (14.0-18.0); Imm Gran Abs Auto 0.03 X10*3/uL (0.00-0.03); Imm Gran Pct Auto 0.3 % (0.0-0.4); Lymphocytes Absolute Auto 1.7 X10*3/uL (1.2-4.9); Mean Corpuscular HGB Conc 33.7 g/dl (31.0-36.0); Mean Corpuscular Hemoglobin 27.9 pg (27.0-33.0); Mean Corpuscular Volume 82.9 fL (80.0-98.0); Mean Platelet Volume 8.7 fL (9.4-12.4); Monocytes Absolute Auto 0.7 X10*3/uL (0.1-1.2); Monocytes Percent Auto 6.6 % (2-11); Neutrophils Absolute Auto 8.5 x10*3/uL (2.0-8.3); Neutrophils Percent Auto 77.1 % (45-73); Platelet Count 332 X10*3/uL (160-400); Red Blood Count 5.51 X10*6/uL (4.60-5.80); Red Cell Distribution Width 12.4 % (11.0-16.0); White Blood Count 11.1 X10*3/uL (4.8-10.8)
[2024-05-24 06:50] LABS: Alanine Aminotransferase 54 U/L (0-40); Albumin Level 4.6 g/dL (3.5-5.0); Alkaline Phosphatase 84 U/L (39-117); Anion Gap 19 (12-20); Aspartate Amino Transferase 30 U/L (5-37); Bilirubin Total 0.7 mg/dL (0.0-1.0); Blood Urea Nitrogen 8 mg/dL (9-16); Calcium 9.7 mg/dL (8.4-10.2); Carbon Dioxide 21 mmol/L (22-29); Chloride 103 mmol/L (96-108); Creatinine Clr Calc Pharmacy 144.8; Estimated Glomerular Filt Rate > 60; Glucose Random 113 mg/dL (60-115); Potassium 3.7 mmol/L (3.3-5.1); Sodium 139 mmol/L (135-145); Total Protein 8.4 g/dL (6.5-8.0)
[2024-05-24 06:51] LABS: IDNOW Serial# 152EDE1D; Influenza A Negative (Negative); Influenza B2 Negative (Negative)
[2024-05-24 07:07] LABS: COVID-19 Test Negative (Negative); IDNOW Serial# 08D9AD1C
--- NOTE | 2024-05-24 07:08 | ED.GENADULT ---
HPI - General Adult General Chief complaint: General Medical Stated complaint: body pain Time Seen by Provider: 05/24/24 06:32 Source: patient, RN notes reviewed and old records reviewed Mode of arrival: ambulatory History of Present Illness ED Provider: Caroline Mcdonald PA-C HPI narrative: 34-year-old male with a past medical history of YEYO, asthma, obesity, umbilical hernia repair on 05/12/2024, presenting to the ED complaining of diffuse myalgias/body pain, sore throat, and chills x yesterday morning. Admits traveled to [place] yesterday which believes worsened symptoms. Reports slight dry cough. Denies known fever, abdominal pain, nausea, vomiting, diarrhea/constipation, CP/SOB, sick contacts Related Data Home Medications ?Medication ?Instructions ?Recorded ?Confirmed losartan 50 mg tablet 50 mg PO DAILY 06/04/23 06/04/23 Previous Rx's ?Medication ?Instructions ?Recorded Flovent Diskus 100 mcg/actuation 2 inh inhalation BID #60 ea 06/04/23 powder for inhalation (fluticasone propionate) fluticasone 100 mcg-salmeterol 50 1 inh inhalation BID #60 ea 06/05/23 mcg/dose blistr powdr for inhalation (Advair Diskus) Allergies Allergy/AdvReac Type Severity Reaction Status Date / Time No Known Allergies Allergy Verified 05/24/24 05:58 Review of Systems Review of Systems: Yes all other systems are reviewed and are negative Constitutional: Constitutional: Reports as per [facility] Past Medical History Attestation statement: The following information was validated with the patient. Source: old records reviewed Medical History Lab test negative for COVID-19 virus History of COVID-19 Gallstones Social History Social History Patient Tobacco Use Status: Never used Tobacco Smoked in Last 30 Days: No Substance Use Type: Marijuana Advance Directives: No Do you have a plan to hurt others: No Plan Physical Exam ED Vital Signs: Vital Signs - 24 hr 05/24/24 05:55 05/24/24 06:22 05/24/24 09:01 Temperature 98.5 F 98.1 F 99.1 F Pulse Rate 112 H 88 87 Respiratory Rate 18 22 H 19 Blood Pressure 132/104 H 152/95 H 144/86 H Pulse Oximetry 97 100 98 Oxygen Delivery Method Room Air Room Air Room Air BMI result Body Mass Index 38.0 Const General: cooperative, healthy appearing and no acute distress Orientation/consciousness: patient oriented x3 Limitations: no limitations HENMT Head: Yes normal to inspection and Yes atraumatic Ears: hearing grossly normal bilaterally General nose exam: Normal external nose present Face and sinus: Yes normal facial exam Mouth: no drooling Throat: Yes tonsils normal, Yes uvula midline, No abnormal tonsil, No peritonsillar mass, No uvula laterally displaced and No uvular edema Eyes General: appearance normal, both eyes and all related structures EOM: EOMs intact bilaterally Neck Neck: Yes normal visual inspection and Yes no meningeal signs Resp Effort & Inspection: normal respiratory effort, no respiratory distress and no stridor Auscultation: clear to auscultation bilaterally, no crackles, no rhonchi and no wheezes Cardio Rate: regular rate Heart sounds: S1 normal heart sound present and S2 normal heart sound present GI Inspection: Yes normal to inspection Palpation (GI): Soft to palpation, nontender, no guarding and not rigid Skin Rashes: no rashes Wounds: no wounds Neuro General: patient oriented x3, gait normal, tone normal, moves all extremities, no meningeal signs, no focal motor deficits and CN's II-XI intact bilaterally Cranial nerves: Yes CN's II-XII intact bilaterally Gait exam (Neuro): Normal gait present Motor exam (neuro): 5/5 motor strength present throughout Extrem General: Yes normal to inspection Course Course Course Narrative: -0748--labs reassuring. COVID and influenza negative > labs discussed. Will p.o. challenge. -0957--UA not infected, however with blood/RBCs, recommended repeat UA in 1 week with PCP. -patient tolerating p.o. in the ED without difficulty -able to stand and walk independently Results discussed with patient including worrisome signs and symptoms and strict return precautions, and when to return to the emergency department. They verbalized understanding and feel safe for discharge at this time. Medications Administered Discontinued Medications Generic Name Dose Route Start Last Admin Trade Name Freq PRN Reason Stop Dose Admin Ketorolac Tromethamine 30 mg 05/24/24 07:20 05/24/24 08:26 Ketorolac Tromethamine 30 Mg/Ml Vial IM 05/24/24 07:21 30 mg ONCE ONE Administration Medical Decision Making Medical Decision Making [facility] Narrative: 34-year-old male with a past medical history of YEYO, asthma, obesity, umbilical hernia repair on 05/12/2024, presenting to the ED complaining of diffuse myalgias/body pain, sore throat, and chills x yesterday morning. On exam initially tachycardic, NAD, nontoxic appearing, lungs CTA, abdomen soft/nontender, oropharynx WNL. Concern for viral illness vs pharyngitis. Rule out metabolic abnormalities. Low suspicion for acute pneumonia, no evidence of PRODUCT ENGINEER/retropharyngeal abscess. Unlikely severe sepsis. Low suspicion for meningitis/encephalitis or demyelinating process Plan: Viral testing, labs Please refer to course for remaining clinical decision making, interpretation of labs/imaging results, and discussions with consultants and/or family members. Differential Diagnosis Differential Diagnoses: The differential diagnosis associated with the presentation includes As above Admission/Observation Consideration of admission/observation: Escalation of care including admission/observation considered Lab Data [facility] Lab Attestation statement: I reviewed the patient's lab results. 05/24/24 06:21 05/24/24 06:21 Labs: Lab Results 05/24/24 05/24/24 Range/Units 06:21 09:06 WBC 11.1 H (4.8-10.8) X10*3/uL RBC 5.51 (4.60-5.80) X10*6/uL Hgb 15.4 (14.0-18.0) g/dl Hct 45.7 (42.0-52.0) % MCV 82.9 (80.0-98.0) fL MCH 27.9 (27.0-33.0) pg MCHC 33.7 (31.0-36.0) g/dl RDW 12.4 (11.0-16.0) % Plt Count 332 (160-400) X10*3/uL MPV 8.7 L (9.4-12.4) fL Immature Gran % (Auto) 0.3 (0.0-0.4) % Neut % (Auto) 77.1 H (45-73) % Lymph % (Auto) 15.0 L (20-40) % [place] % (Auto) 6.6 (2-11) % Eos % (Auto) 0.5 (0-4) % Baso % (Auto) 0.5 (0-2) % Lymph # (Auto) 1.7 (1.2-4.9) X10*3/uL [place] # (Auto) 0.7 (0.1-1.2) X10*3/uL Eos # (Auto) 0.1 (0.0-0.4) X10*3/uL Baso # (Auto) 0.1 (0.0-0.2) X10*3/uL Abs Immat Gran (auto) 0.03 (0.00-0.03) X10*3/uL Absolute Neuts (auto) 8.5 H (2.0-8.3) x10*3/uL Absolute Nucleated RBC 0.000 (0.0-0.012) X10*3/uL Nucleated RBC % (auto) 0.0 (0.0-0.2) /100WBC Sodium 139 (135-145) mmol/L Potassium 3.7 (3.3-5.1) mmol/L Chloride 103 (96-108) mmol/L Carbon Dioxide 21 L (22-29) mmol/L Anion Gap 19 (12-20) BUN 8 L (9-16) mg/dL Creatinine 0.87 (0.5-1.4) mg/dL Estim Creat Clear Calc 144.8 Estimated GFR > 60 Random Glucose 113 (60-115) mg/dL Calcium 9.7 (8.4-10.2) mg/dL Magnesium 1.7 (1.6-2.6) mg/dL Total Bilirubin 0.7 (0.0-1.0) mg/dL AST 30 (5-37) U/L ALT 54 H (0-40) U/L Alkaline Phosphatase 84 (39-117) U/L Total Protein 8.4 H (6.5-8.0) g/dL Albumin 4.6 (3.5-5.0) g/dL Urine Color Yellow Urine Appearance Clear Urine pH 6.5 (5.0-9.0) Ur Specific [place] 1.010 (1.005-1.025) Urine Protein 100 (2+) H (Neg-Trace) mg/dL Urine Glucose (UA) Negative (Negative) mg/dL Urine Ketones Negative (Negative) mg/dL Urine Blood Moderate (2+) H (Negative) Urine Nitrite Negative (Negative) Ur Leukocyte Esterase Negative (Negative) Urine RBC >20 H (0-2) /HPF Urine WBC 0-5 (0-5) /HPF Ur Squamous Epith Cells 0-2 (0-2) /HPF Urine Bacteria None Seen (None Seen) Hyaline Casts 0-2 (0-2) /LPF COVID-19 (JAZZMINE) Negative (Negative) COVID-19 Clin Com See Note Influenza Type A (TAMIKA) Negative (Negative) Influenza Type B (TAMIKA) Negative (Negative) Influenza A & B Note See Note Radiology Impression Discussion of test interpretation with radiology: I have reviewed the radiologist's reading. External Record Review External record reviewed: Inpatient record, Office record, Outpatient record, Prior outpatient labs, Prior outpatient radiology, Primary care record and Outside ED record Tests considered The following testing was considered but not selected: As above Prescription Management I considered prescription management with: Pain Medication Chronic Conditions Patient?s care impacted by: Other Social Determinants Patient?s care significantly limited by Social Determinants of Health including: Other Social Determinant of Health Discharge Plan Discharge Clinical Impression: Myalgia Patient Disposition: Home, Self-Care Instructions: Musculoskeletal Pain (ED) Additional Instructions: Your blood work, and COVID/flu/RSV testing were reassuring Your urine does have blood in it, please have this followed up with your primary care doctor If her symptoms persist or worsen return to the emergency department Make sure you are staying hydrated, rest Prescriptions: No Action fluticasone propion-salmeterol [Advair Diskus] 100-50 mcg/dose blister with device 1 inh inhalation BID Qty: 60 3RF losartan 50 mg tablet 50 mg PO DAILY Flovent Diskus 100 mcg/actuation blister with device 2 inh inhalation BID Qty: 60 3RF Referrals: Ryland Nicole MD [Primary Care Provider] - Interventions: ED Discharge Assessment Last Done: 05/24/24 10:51 Print Language: Syriac
[2024-05-24 07:14] LABS: Magnesium 1.7 mg/dL (1.6-2.6)
[2024-05-24] MEDS: Ketorolac Tromethamine 30 MG/ML VIAL IM (08:26)
[2024-05-24 09:01] VITALS: BP 144/86; PULSE 87; RESP 19; TEMP 37.3; O2SAT 98
[2024-05-24 09:20] LABS: Appearance Urine Clear; Color Urine Yellow; Glucose Urine UA Negative (Negative); Leukocyte Esterase Urine Negative (Negative); Nitrite Urine Negative (Negative); PH 6.5 (5.0-9.0); UMIC TRIGGER UACC YES; Urine Blood Moderate (2+) (Negative); Urine Ketones Negative (Negative); Urine Protein 100 (2+) mg/dL (Neg-Trace)
[2024-05-24 09:22] LABS: Bacteria Urine None Seen (None Seen); Hyaline Casts Urine 0-2 /LPF (0-2); RBC Urine >20 /HPF (0-2); Squamous Epithelial Cell Urine 0-2 /HPF (0-2); WBC Urine 0-5 /HPF (0-5)
--- NOTE | 2024-05-24 10:30 | PC.NURSE ---
Pt.'s grandmother requesting to speak with PA again prior to discharge. States that she is concerned about meningitis running in their family. RN explained to grandmother that meningitis is not a hereditary disease, but grandmother still looking to speak again with PA before they leave.
[2024-05-24 10:51] VITALS: BP 112/68; PULSE 80; RESP 18; TEMP 37.4; O2SAT 100
== END 2024-05-24 10:52 | disposition home or self-care (01) ==
PROVIDERS: Physician Assistant; Emergency Provider Emergency Medicine; PCP Internal Medicine
DX: M79.10 Myalgia, unspecified site (principal); Z11.52 Encounter for screening for COVID-19; Z79.899 Other long term (current) drug therapy
CPT/HCPCS: 36415; 80053; 81001; 83735; 85025; 87502; 87635; 96372; 99284; J1885

== ENCOUNTER 2024-05-28 11:52 | Outpatient (REF) | payer OTHER, SELFPAY ==
[2024-05-28 13:18] LABS: Urine Cytology See Pathology rpt
== END 2024-05-28 11:53 | disposition home or self-care (01) ==
LOC: HO.US 11:52
PROVIDERS: PCP Internal Medicine; Visit Provider Internal Medicine
DX: R31.9 Hematuria, unspecified (principal)
CPT/HCPCS: 76770; 88112